=== PATIENT | female | born 1960 | race Caucasian/White ===

== ENCOUNTER 2023-04-12 08:42 | Day surgery (SDC) | payer OTHER, SELFPAY ==
[2023-04-09 19:36] VITALS: BMI 26.7
--- NOTE | 2023-04-11 10:55 | HO.ANESPROP2 ---
HPI - Anesthesia Eval Consult details Narrative: 62yo F for Colonoscopy PMFSH Past Medical History Medical History ADD (attention deficit disorder) Anxiety Hypothyroidism Surgical History Surgical History History of section H/O hemorrhoidectomy History of colonoscopy Meds Allergies Allergy/AdvReac Type Severity Reaction Status Date / Time penicillin V AdvReac Unknown Vomiting Verified 04/18/21 14:33 Latex Allergy Unknown Eye Uncoded 04/18/21 14:33 swelling and Redness Home Medications Medication Instructions Recorded Confirmed Last Taken Type bupropion HCl 150 mg 24 hr tablet, 150 mg PO DAILY 04/09/23 04/09/23 Unknown History extended release cinnamon bark 500 mg capsule 500 mg PO DAILY 04/09/23 04/09/23 Unknown History (Cinnamon) vevd-oegop-dp5-djq-npa-dguj-sterols 1 cap PO DAILY 04/09/23 04/09/23 Unknown History 375 mg-100 mg-36 mg-54 mg capsule (Glucosamine Chondroitin PLUS) levothyroxine 88 mcg tablet 88 mcg PO DAILY 04/09/23 04/09/23 Unknown History multivitamin 1 tab PO DAILY 04/09/23 04/09/23 Unknown History Exam Height,Weight and Vital Signs: Height 5 ft 1 in Weight 64.047 kg Assessment and Plan Assessment Anesthesia Assessment: Chart Reviewed
[2023-04-12] MEDS: Lactated Ringers 1,000 ML 100 ML IVCONT (09:10)
[2023-04-12 09:17] VITALS: BP 135/72; PULSE 75; RESP 18; TEMP 36.7; O2SAT 100
--- NOTE | 2023-04-12 10:14 | HO.ANESPROP2 ---
[facility] Past Medical History Medical History ADD (attention deficit disorder) Anxiety Hypothyroidism Functional capacity: independent ambulation Family History Family history of problems with anesthesia: No Surgical History Surgical History History of section H/O hemorrhoidectomy History of colonoscopy History of Problems with Anesthesia: Yes Social History Social History Patient Tobacco Use Status: Never used Tobacco Are you DNR?: No Advance Directives: No Advance Directives Information Provided: Yes Nutrition Risks: No Nutritional Risk Meds Allergies Allergy/AdvReac Type Severity Reaction Status Date / Time penicillin V AdvReac Unknown Vomiting Verified 04/12/23 09:17 Latex Allergy Unknown Eye Uncoded 04/12/23 09:17 swelling and Redness Active Medications: Current Medications Lactated Ringer's (Lr) 1,000 mls @ 100 mls/hr IVCONT .Q10H JENNY Last Admin: 04/12/23 09:10 Dose: 100 mls/hr Sodium Biphosphate/Sodium Phosphate (Sodium Phosphate,[place]-Dibasic 133 Ml Enema) 133 ml AL ONCE PRN PRN Reason: Poor Colonoscopy Prep Results Home Medications Medication Instructions Recorded Confirmed Last Taken Type bupropion HCl 150 mg 24 hr tablet, 150 mg PO DAILY 04/09/23 04/09/23 Unknown History extended release cinnamon bark 500 mg capsule 500 mg PO DAILY 04/09/23 04/09/23 Unknown History (Cinnamon) lgus-nbzfb-ih5-wmm-sir-htwe-sterols 1 cap PO DAILY 04/09/23 04/09/23 Unknown History 375 mg-100 mg-36 mg-54 mg capsule (Glucosamine Chondroitin PLUS) levothyroxine 88 mcg tablet 88 mcg PO DAILY 04/09/23 04/09/23 Unknown History multivitamin 1 tab PO DAILY 04/09/23 04/09/23 Unknown History Exam Height,Weight and Vital Signs: Height 5 ft 1 in Weight 64.047 kg Last Vital Signs Temp 98.0 F 04/12/23 09:17 Pulse 75 04/12/23 09:17 Resp 18 04/12/23 09:17 BP 135/72 04/12/23 09:17 Pulse Ox 100 04/12/23 09:17 O2 Del Method Room Air 04/12/23 09:17 Airway Mallampati Class: II TM Dist: >3cm Neck ROM: Full Heart: RRR Lungs: CTA Assessment and Plan Assessment Anesthesia Assessment: Anesthesia Plan Discussed Final Anesthetic Review Family History of Problems with Anesthesia: No History of Problems with Anesthesia: Yes ASA Class: II Final Preanesthetic Review: Meds/Allgs Chart Reviewed, Consent Obtained/Reviewed and Anes Risks/Benef Reviewed Patient Risk: Low Procedure Risk: Low Anesthetic Plan Anesthetic Plan: GA Disposition: Standard PACU
[2023-04-12 11:00] VITALS: BP 139/77; PULSE 75; RESP 16; TEMP 36.8; O2SAT 99
--- NOTE | 2023-04-12 11:00 | PM.OP ---
Brief Operative Note Date of Service: 04/12/23 Pre-op diagnosis: Screening Post-op diagnosis: other (Diverticulosis) Procedure: Colonoscopy to the cecum and TI Surgeon: Alfie Cramer MD Anesthesia: MAC Was an Electric Train Driver used for this Procedure?: No Estimated blood loss (mL): 0 Pathology: none sent Condition: stable Disposition: PACU
[2023-04-12 11:05] VITALS: BP 166/77; PULSE 73; RESP 16; O2SAT 100
[2023-04-12 11:10] VITALS: BP 162/74; PULSE 70; RESP 16; O2SAT 100
[2023-04-12 11:15] VITALS: BP 137/76; PULSE 72; RESP 16; O2SAT 100
[2023-04-12 11:30] VITALS: BP 145/77; PULSE 63; RESP 18; TEMP 36.1; O2SAT 100
--- NOTE | 2023-04-12 11:30 | OP_ITS ---
DATE OF SERVICE: 04/12/2023 SURGEON: Alfie Cramer MD INDICATIONS: The patient presents for evaluation of colorectal cancer screening. Full consent was obtained from her for this, including risks of bleeding and perforation. PREOPERATIVE DIAGNOSIS: Colorectal cancer screening. POSTOPERATIVE DIAGNOSIS: PROCEDURE PERFORMED: Colonoscopy to cecum and terminal ileum. ESTIMATED BLOOD LOSS: COMPLICATIONS: ANESTHESIA: Monitored anesthesia care. ASSISTANTS: SPECIMENS: POSTOPERATIVE DIAGNOSES: Colorectal cancer screening, sigmoid diverticulosis, and internal hemorrhoids. DESCRIPTION OF PROCEDURE: The patient was placed in the left lateral decubitus position. The digital rectal exam revealed no abnormalities. The Olympus video pediatric colonoscope was entered into the rectum and advanced easily to the cecum. Once in the cecum, I did identify a normal-appearing cecal pouch with appendiceal orifice and a normal-appearing ileocecal valve. There was transillumination of light deep in the right lower quadrant. The terminal ileum was cannulated and appeared normal. The scope was withdrawn back in the colon. The entire cecum and ileocecal valve appeared normal. The scope was slowly withdrawn assessing all mucosal surfaces carefully. Preparation was excellent. I did not visualize any sign of polyps, colitis, nor angiodysplasia. There was a mild amount of sigmoid diverticulosis. In the rectum, scope was retroflexed visualizing internal hemorrhoids, but no other pathology. The rectal mucosa appeared normal. Scope was straightened and withdrawn from the patient. She tolerated the procedure well and was returned to recovery area in stable condition. IMPRESSION: 1. Mild diverticulosis. 2. Internal hemorrhoids. PLAN: Given today's negative exam, I would recommend a followup coloscopy in 10 years for further screening. She was instructed to use some vikc-jka-afmduhm Preparation-H or Anusol suppositories as needed for any hemorrhoidal bleeding or discomfort. She will see me on a p.r.n. basis. MD HOLLY oBtello/ROYAL / [id number]
--- NOTE | 2023-04-12 12:56 | HO.POSTANES ---
Post Anesthesia Evaluation Post Anesthesia Evaluation Date of Service: 04/12/23 Vital Signs: Vital Signs Temp Pulse Resp BP Pulse Ox O2 Del Method 04/12/23 11:30 97.0 F 63 18 145/77 H 100 Room Air 04/12/23 11:15 72 16 137/76 100 Room Air 04/12/23 11:10 70 16 162/74 H 100 Room Air 04/12/23 11:05 73 16 166/77 H 100 Room Air 04/12/23 11:00 98.2 F 75 16 139/77 99 Room Air 04/12/23 09:17 98.0 F 75 18 135/72 100 Room Air Anesthesia: TIVA Mental Status: Awake Pain Control: Satisfactory Nausea/Vomiting: None Hydration: Adequate Anesthesia-Related Issues: No Anes. Related Issues
== END 2023-04-12 11:46 | disposition home or self-care (01) ==
PROVIDERS: PCP Nurse Practitioner Family; Visit Provider Internal Medicine
PROC: 0DJD8ZZ Inspection of Lower Intestinal Tract, Via Natural or Artificial Opening Endoscopic (ICD-10-PCS; CPT 45378; principal; 2023-04-12 09:50)
DX: Z12.11 Encounter for screening for malignant neoplasm of colon (principal); K57.30 Diverticulosis of large intestine without perforation or abscess without bleeding; K64.8 Other hemorrhoids; Z83.719 Family history of colon polyps, unspecified; E03.9 Hypothyroidism, unspecified; F98.8 Other specified behavioral and emotional disorders with onset usually occurring in childhood and adolescence; Z79.899 Other long term (current) drug therapy
CPT/HCPCS: 45378; J2704

== ENCOUNTER 2025-05-06 13:41 | Outpatient (REF) | payer OTHER, SELFPAY ==
[2025-05-06 18:47] LABS: Resp Syncy Virus RNA Qual PCR NEGATIVE (Negative); SARS COV2 PCR INHOUSE NEGATIVE (Negative)
== END 2025-05-06 13:42 | disposition home or self-care (01) ==
LOC: HO.LNP 13:41
PROVIDERS: Nurse Practitioner Family; PCP Nurse Practitioner Family
DX: J02.9 Acute pharyngitis, unspecified (principal); R09.89 Other specified symptoms and signs involving the circulatory and respiratory systems; Z13.89 Encounter for screening for other disorder
CPT/HCPCS: 87637; 87880

== ENCOUNTER 2025-05-06 13:41 | Outpatient (AMB) | payer OTHER, SELFPAY ==
[2025-05-06 13:44] VITALS: BP 112/66; PULSE 67; TEMP 36.7; O2SAT 97; BMI 27.3
--- NOTE | 2025-05-06 13:44 | AM.OFFWIN_ITS ---
Intake Vital Signs 05/06/25 13:44 Height 5 ft Weight 140 lb BMI 27.3 BP 112/66 Blood Pressure Location Lt brachial Position Sitting Pulse 67 Pulse Source Pulse Oximeter Temp 98.1 F Temp Source Oral Pulse Oximetry (%) 97 Oxygen Delivery Method Room Air Intake Visit Reasons: EP sore throat over 24hours Intake Note: Patient presents c/o sore throat since yesterday. Patient Tobacco Use Status: Never used Tobacco Allergies penicillin V Adverse Reaction (Unknown, Verified 05/06/25 13:46) Vomiting Latex Allergy (Unknown, Uncoded 05/06/25 13:46) Eye swelling and Redness HPI HPI Comments History of Present Illness Details History of Present Illness - The patient is a 64 year old female pr esenting with a sore throat. - She has a dry sore throat and it hurts to swallow. - She denies fever, ear pain, and cough. - She owns a childcare center and report s recent exposures to staff with COVID- 19, and influenza. - She is concerned about being contagiou s as she is scheduled to babysit her grandchildren and work in a classroom. - She reports she does not get sick ofte n but when she does, the illness is severe. - She has received an influenza vaccinat ion. - She denies smoking. Physical Exam General: Cooperative, healthy appearing, comfortable, no acute distress and well developed Orientation: Patient oriented x3 Limitations: No limitations Head: Normal to inspection Ears: Hearing grossly normal bilaterally. Normal TMs noted. Nose: Normal external nose present Face and sinus: Normal facial exam. No sinus tenderness noted. Mouth: Uvula is midline. Oropharynx is pink, with no exudates noted. Tongue is midline. Moist mucosa noted. Neck: Normal visual inspection and Yes full ROM. No lymphadenopathy noted. Respiratory: Normal respiratory effort and able to speak in complete sentences. Clear to auscultation bilaterally Cardiovascular: Regular rate and rhythm. Normal S1 and S2 Skin: No rashes or lesions noted Patient was informed and verbally consented to the use of an ambient scribe for clinic note documentation during this visit. [facility] Medical History ADD (attention deficit disorder) Anxiety Hypothyroidism Surgical History History of section H/O hemorrhoidectomy History of colonoscopy Social History Patient Tobacco Use Status: Never used Tobacco Review of Systems Const All systems reviewed & are unremarkable except as noted in HPI and below Physical Exam Vital Signs: BMI result Body Mass Index 27.3 Results AMB Rapid Strep AMB Rapid Strep Negative Last Edit by Abigail Bo CMA on 05/06/25 13: 59 Assessment & Plan Assessment & Plan (1) Sore throat: Code(s): J02.9 - Acute pharyngitis, unspecified Plan Most likely Acute Pharyngitis due to virus vs post nasal drip vs allergies rapid strep is negative plan - A nasal swab has been collected to test for influenza, RSV, and COVID-19. - The patient will be contacted with the results later today. - Recommended supportive care includes saltwater gargles and analgesics such as Tylenol or Motrin as needed. Orders: Orders AMB Rapid Strep Screen Today Z13.9 - Encounter for screening, unspecified SARS-CoV2/FLU/RSV Today R09.89 - Other specified symptoms and signs involving the circulatory and respiratory systems Coding Level of Care Code Est Pt Level 3 (08443) Diagnoses Sore throat J02.9
--- OUTSIDE RECORDS SUMMARY | 2025-05-06 20:55 | XMS_ITS | Patient Health Record ---
Author Organization [facility] Address [address] [place] [address] Care Team Providers Care Direct Marketing Specialist Name Role Phone Joe Dominique SIMMONS Primary Care Provider Alfie Yeh Unavailable [phone] Allergies Allergen (clinical drug ingredient) Drug/Non Drug Allergy documented on EMR Reaction Allergy Type Onset Date Status Latex Latex Unknown Allergy Active Penicillin Unknown Drug Allergy Active Reason For Referral No Information Medications Medication SIG (Take, Route, Frequency, Duration) Notes Start Date End Date Status buPROPion HCl ER (XL) 150 MG Tablet Extended Release 24 Hour TAKE ONE TABLET BY MOUTH EVERY 24 HOURS Oral; Duration: 90 Active Multi Adult Gummies - Tablet Chewable as directed Orally Active Levothyroxine Sodium 88 MCG Tablet TAKE 1 TABLET BY MOUTH DAILY INCREASED STRENGTH - RECHECK LEVELS IN 3 MONTHS). Oral; Duration: 90 Active Wzwpsm-Htgxypurv-Pd-Mg-C-D - Packet as directed Orally Active Cinnamon 500 MG Capsule as directed Orally Active Melatonin 3 MG Tablet 1 tablet at bedtim e as needed Orally Once a day; Duration: 30 day(s) Active Immunizations Vaccine Route Administration Date Status Comme nts Influenza Unknown 04/17/2022 Administered Social History Tobacco Use: Social History Observation Description Date Details (start date - stop date) Never Smoker NA - NA Social History Drugs/Alcohol: Social Info Question Answer Notes Alcohol Screen Did you have a drink containing alcohol in the past year? Yes How often did you have a drink containing alcohol in the past year? 2 to 4 times a month (2 points) How many drinks did you have on a typical day when you were drinking in the past year? 1 or 2 drinks (0 point) How often did you have 6 or more drinks on one occasion in the past year? 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 Problems Problem Type SNOMED Code ICD Code Onset Dates Problem Status W/U Status Risk Notes Problem Colon cancer screening (647084890) Colon cancer screening (Z12.11) Active confirmed Problem Diverticular disease of colon (883262285) Diverticulosis of large intestine without perforation or abscess without bleeding (K57.30) Active confirmed Problem Preprocedural examination (381393851724091) Preprocedural examination (Z01.818) Active confirmed Plan Of Treatment Future Test Test Name Order Date COLONOSCOPY 01/02/2023 Insurance Providers Payer Name Payer Address Payer Phone Subscriber Number Group Number Insured Name Patient Relationship to Insured Coverage Start Date Coverage End Date [facility] [address] [place] [phone] [id number] JONE HARTMANN Self - patient is the insured Medical (General) History Medical History History ICD Code Neg. screening colonoscopy at approx age 50 at [facility]-Dr. Mcgowan Hypothyroidism Self-reports Anxiety/ADD Denies LA,DM,CVA,Lung disease,renal dise ase Surgical History Surgery Date(Month/Year) C-sections 1989 Hemorrhoids at [facility] 2019 approx
== END 2025-05-06 14:55 | disposition home or self-care (01) ==
PROVIDERS: PCP Nurse Practitioner Family; Visit Provider Physician Assistant Medical
DX: Z13.9 Encounter for screening, unspecified (principal); J02.9 Acute pharyngitis, unspecified